=== PATIENT | female | born 1990 | race Hispanic/Latino ===

== ENCOUNTER 2019-12-03 11:16 | Emergency (ER) | payer BC, OTHER ==
[2019-12-03] MEDS ORDERED: ONDANSETRON ODT 4 MG TAB ONE (12:52)
== END 2019-12-03 14:06 | disposition home or self-care (01) ==
LOC: EDH 11:16
DX: U07.1 COVID-19 (principal); R05 Cough; R11.2 Nausea with vomiting, unspecified; I10 Essential (primary) hypertension
CPT/HCPCS: 71045; 81025; 99284; U0003; 36415

== ENCOUNTER 2021-02-18 09:58 | Emergency (ER) | payer OTHER ==
[~2021-02-18] VITALS: Ht 170.2 cm; Wt 145.1 kg
[2021-02-18 10:25] VITALS: BP 117/72
[2021-02-18] MEDS ORDERED: KETOROLAC 60 MG VIAL (30MG/ML) IM ONE (10:30)
[2021-02-18] MEDS ORDERED: NAPR-1180 PO (11:25)
[2021-02-18] MEDS ORDERED: METH-812 PO (11:25)
[2021-02-18 12:02] VITALS: BP 115/71
== END 2021-02-18 12:06 | disposition home or self-care (01) ==
LOC: EDH 09:58
DX: S16.1XXA Strain of muscle, fascia and tendon at neck level, initial encounter (principal); E66.9 Obesity, unspecified; Z79.1 Long term (current) use of non-steroidal anti-inflammatories (NSAID); Z68.43 Body mass index [BMI] 50.0-59.9, adult; V89.0XXA Person injured in unspecified motor-vehicle accident, nontraffic, initial encounter; Y93.89 Activity, other specified; Y92.89 Other specified places as the place of occurrence of the external cause; Y99.8 Other external cause status
CPT/HCPCS: 72040; 96372; 99283; J1885